=== PATIENT | female | born 1985 | race Caucasian/White ===

== ENCOUNTER 2022-06-19 11:36 | Emergency (ER) | payer OTHER ==
--- NOTE | 2022-06-19 11:47 | ED ---
Abdominal Pain HPI - General Chief Complaint: Abdominal Pain Stated Complaint: RLQ abd pain Time Seen by Provider: 06/19/22 11:46 Source: patient, RN notes reviewed Mode of arrival: ambulatory Limitations: no limitations - History of Present Illness Initial Comments: Patient is a 37-year-old female presents the emergency room with sudden onset of right lower quadrant pain that began last night with some associated diarrhea and nausea without vomiting. She denies any fevers, chills, pain, shortness of breath, blood or mucus in her stool. She denies any known exposure to cold or influenza. She has not taken any medication to treat her symptoms. She has a past medical history significant for endometriosis with uterine ablation a few years ago, rheumatoid arthritis not currently on any biologicals or immunosuppressive therapy, and kidney stones. She reports that the pain she is experiencing is not like her usual kidney stone pain she ty pically has classic flank pain with her kidney stones with cloudy or blood- tinged urine. She has not had a stone and several months. She denies any other complaints or concerns at this time. - Related Data Allergies Allergy/AdvReac Type Severity Reaction Status Date / Time Iodine and Iodide Containing Allergy Rash/Hives Verified 06/19/22 11:41 Produc Review of Systems ROS Statement: Those systems with pertinent positive or pertinent negative responses have been documented in the HPI. ROS Other: All systems not noted in ROS Statement are negative. Past Medical History Additional Past Medical History / Comment(s): RA, Kidney stones History of Any Multi-Drug Resistant Organisms: None Reported Past Surgical History: Ablation, Section, Cholecystectomy, Hernia Repair Past Psychological History: No Psychological Hx Reported Smoking Status: Never smoker Past Alcohol Use History: None Reported Past Drug Use History: Marijuana General Exam Limitations: no limitations Course Vital Signs 06/19/22 06/19/22 11:38 15:49 Temperature 97.8 F 98.4 F Pulse Rate 81 64 Respiratory 18 16 Rate Blood Pressure 133/80 121/91 O2 Sat by Pulse 99 97 Oximetry Medical Decision Making - Medical Decision Making Due to sudden onset of right lower extremity quadrant pain concern for renal stone and appendicitis; given the lack of flank pain and urinary symptoms higher for appendicitis. Will check computed tomography scan of the abdomen and pelvis. Will check CBC for infectious process along with cough, amylase and lipase to evaluate electrolyte abnormalities and GI lab disturbances. Will check urinalysis to rule out UTI and hematuria along with urine test. Computed tomography scan negative for appendicitis with normal-appearing appendix however inflammatory changes and or fluid collection noted in the right lower quadrant adnexal region differential diagnoses include ovarian cyst rupture; she has a history of ovarian cysts. Will check a transvaginal ultrasound of the pelvis. Will give Toradol for pain and monitor response. CBC overall normal. Comp reveals mildly elevated total bilirubin otherwise no anom alies. Urine negative for acute findings. test negative. Pelvic ultrasound shows multiple follicles on bilateral ovaries along with endometriosis and nathbalion cyst; no ovarian torsion or free fluid in the pelvis. She is already established with [facility] and would like to follow up outpatient with her [facility]. No significant pain improvement from dose of Toradol. 2 mg morphine to help control pain prior to disc discharge; patient has a ride home and does not need to drive. Will discharge home with strict return parameters. Case discussed with Dr. Nunes. - Lab Data Result diagrams: 06/19/22 12:19 06/19/22 12:19 Lab Results 06/19/22 06/19/22 06/19/22 Range/Units 12:19 12:19 12:19 WBC 9.8 (3.8-10.6) k/uL RBC 4.56 (3.80-5.40) m/uL Hgb 13.4 (11.4-16.0) gm/dL Hct 40.2 (34.0-46.0) % MCV 88.1 (80.0-100.0) fL MCH 29.5 (25.0-35.0) pg MCHC 33.4 (31.0-37.0) g/dL RDW 12.6 (11.5-15.5) % Plt Count 237 (150-450) k/uL MPV 7.2 Neutrophils % 68 % Lymphocytes % 23 % Monocytes % 5 % Eosinophils % 1 % Basophils % 0 % Neutrophils # 6.7 (1.3-7.7) k/uL Lymphocytes # 2.3 (1.0-4.8) k/uL Monocytes # 0.5 (0-1.0) k/uL Eosinophils # 0.1 (0-0.7) k/uL Basophils # 0.0 (0-0.2) k/uL Sodium 138 (137-145) mmol/L Potassium 4.2 (3.5-5.1) mmol/L Chloride 105 (98-107) mmol/L Carbon Dioxide 26 (22-30) mmol/L Anion Gap 7 mmol/L BUN 12 (7-17) mg/dL Creatinine 0.61 (0.52-1.04) mg/dL Est GFR (CKD-EPI)AfAm >90 (>60 ml/min/1.73 sqM) Est GFR (CKD-EPI)NonAf >90 (>60 ml/min/1.73 sqM) Glucose 87 (74-99) mg/dL Plasma Lactic Acid Leon 0.9 (0.7-2.0) mmol/L Calcium 9.5 (8.4-10.2) mg/dL Total Bilirubin 2.1 H (0.2-1.3) mg/dL AST 35 (14-36) U/L ALT 27 (4-34) U/L Alkaline Phosphatase 102 (38-126) U/L Total Protein 7.2 (6.3-8.2) g/dL Albumin 4.4 (3.5-5.0) g/dL Amylase 64 (30-110) U/L Lipase 100 (23-300) U/L HCG, Quant <2.4 mIU/mL Urine Color Urine Appearance (Clear) Urine pH (5.0-8.0) Ur Specific [place] (1.001-1.035) Urine Protein (Negative) Urine Glucose (UA) (Negative) Urine Ketones (Negative) Urine Blood (Negative) Urine Nitrite (Negative) Urine Bilirubin (Negative) Urine Urobilinogen (<2.0) mg/dL Ur Leukocyte Esterase (Negative) 06/19/22 Range/Units 12:19 WBC (3.8-10.6) k/uL RBC (3.80-5.40) m/uL Hgb (11.4-16.0) gm/dL Hct (34.0-46.0) % MCV (80.0-100.0) fL MCH (25.0-35.0) pg MCHC (31.0-37.0) g/dL RDW (11.5-15.5) % Plt Count (150-450) k/uL MPV Neutrophils % % Lymphocytes % % Monocytes % % Eosinophils % % Basophils % % Neutrophils # (1.3-7.7) k/uL Lymphocytes # (1.0-4.8) k/uL Monocytes # (0-1.0) k/uL Eosinophils # (0-0.7) k/uL Basophils # (0-0.2) k/uL Sodium (137-145) mmol/L Potassium (3.5-5.1) mmol/L Chloride (98-107) mmol/L Carbon Dioxide (22-30) mmol/L Anion Gap mmol/L BUN (7-17) mg/dL Creatinine (0.52-1.04) mg/dL Est GFR (CKD-EPI)AfAm (>60 ml/min/1.73 sqM) Est GFR (CKD-EPI)NonAf (>60 ml/min/1.73 sqM) Glucose (74-99) mg/dL Plasma Lactic Acid Leon (0.7-2.0) mmol/L Calcium (8.4-10.2) mg/dL Total Bilirubin (0.2-1.3) mg/dL AST (14-36) U/L ALT (4-34) U/L Alkaline Phosphatase (38-126) U/L Total Protein (6.3-8.2) g/dL Albumin (3.5-5.0) g/dL Amylase (30-110) U/L Lipase (23-300) U/L HCG, Quant mIU/mL Urine Color Colorless Urine Appearance Clear (Clear) Urine pH 7.0 (5.0-8.0) Ur Specific [place] 1.005 (1.001-1.035) Urine Protein Negative (Negative) Urine Glucose (UA) Negative (Negative) Urine Ketones Negative (Negative) Urine Blood Negative (Negative) Urine Nitrite Negative (Negative) Urine Bilirubin Negative (Negative) Urine Urobilinogen <2.0 (<2.0) mg/dL Ur Leukocyte Esterase Negative (Negative) Disposition Clinical Impression: Right lower quadrant abdominal pain Disposition: HOME SELF-CARE Condition: Stable Instructions (If sedation given, give patient instructions): Abdominal Pain (ED) Additional Instructions: Please utilize Tylenol or ibuprofen [id number] for pain as needed. If any changes in pain characteristics, associated symptoms chills nausea vomiting or diarrhea occur please return to the emergency room. Please follow-up with your primary care provider and [facility]. Please return to the Emergency Department if symptoms worsen or any other concerns. Is patient prescribed a controlled substance at d/c from ED?: No Referrals: Jeferson Ramírez MD [Primary Care Provider] - 1-2 days Time of Disposition: 16:26
[2022-06-19 12:30] LABS: Basophils % (A) 0 %; Eosinophils # (A) 0.1 k/uL (0-0.7); Eosinophils % (A) 1 %; HCT 40.2 % (34.0-46.0); HGB 13.4 gm/dL (11.4-16.0); Lymphocytes # (A) 2.3 k/uL (1.0-4.8); Lymphocytes % (A) 23 %; MCH 29.5 pg (25.0-35.0); MCHC 33.4 g/dL (31.0-37.0); MCV 88.1 fL (80.0-100.0); Mean Platelet Volume 7.2; Monocytes # (A) 0.5 k/uL (0-1.0); Monocytes % (A) 5 %; Neutrophils # (A) 6.7 k/uL (1.3-7.7); Neutrophils % (A) 68 %; Platelet Count 237 k/uL (150-450); RBC 4.56 m/uL (3.80-5.40); RDW 12.6 % (11.5-15.5); WBC 9.8 k/uL (3.8-10.6)
[2022-06-19 12:32] LABS: Appearance,Urine Clear (Clear); Bilirubin,Urine Negative (Negative); Blood,Urine Negative (Negative); Color,Urine Colorless; Glucose,Urine (UA) Negative (Negative); Ketones,Urine Negative (Negative); Leukocyte Esterase,Urine Negative (Negative); Nitrite,Urine Negative (Negative); Protein,Urine Negative (Negative); Specific Gravity,Urine 1.005 (1.001-1.035); Urobilinogen,Urine <2.0 mg/dL (<2.0)
[2022-06-19 12:41] LABS: ALT 27 U/L (4-34); AST 35 U/L (14-36); African American GFR (CKD) >90 (>60 ml/min/1.73 sqM); Albumin 4.4 g/dL (3.5-5.0); Alkaline Phosphatase 102 U/L (38-126); Amylase 64 U/L (30-110); Anion Gap 7 mmol/L; Blood Urea Nitrogen 12 mg/dL (7-17); Calcium 9.5 mg/dL (8.4-10.2); Carbon Dioxide 26 mmol/L (22-30); Chloride 105 mmol/L (98-107); Glucose 87 mg/dL (74-99); Lipase 100 U/L (23-300); Non-African American GFR(CKD) >90 (>60 ml/min/1.73 sqM); Sodium 138 mmol/L (137-145); Total Bilirubin 2.1 mg/dL (0.2-1.3); Total Protein 7.2 g/dL (6.3-8.2)
[2022-06-19 12:44] LABS: Potassium 4.2 mmol/L (3.5-5.1)
[2022-06-19 12:56] LABS: HCG,Quantitative Serum <2.4 mIU/mL
--- NOTE | 2022-06-19 13:30 | CT ---
EXAMINATION TYPE: CT abdomen pelvis wo con DATE OF EXAM: 06/19/2022 COMPARISON: None HISTORY: Abdominal pain CT DLP: 918 mGycm Automated exposure control for dose reduction was used. TECHNIQUE: Helical acquisition of images from the lung bases through the pelvis. FINDINGS: LUNG BASES: No significant abnormality is appreciated. AORTA: No significant abnormality is appreciataed. LIVER/GB: Patient is post cholecystectomy. Liver shows no mass.. PANCREAS: No significant abnormality is seen. SPLEEN: Upper limit of normal for size. ADRENALS: No significant abnormality is seen. KIDNEYS: No significant abnormality is seen. REPRODUCTIVE ORGANS: There is a small amount of soft tissue attenuation along the right psoas muscle , extension towards the right adnexal region, possible small amount of hemorrhage. URINARY BLADDER: No significant abnormality is seen. BOWEL: No significant abnormality is seen. The appendix is normal. FREE AIR: No Free Air is visible. ASCITES: None visible. PELVIC ADENOPATHY: None visualized. RETROPERITONEAL ADENOPATHY: No Retroperitoneal Adenopathy visible. OSSEOUS STRUCTURES: No significant abnormality is seen. IMPRESSION: THERE MAY BE A SMALL AMOUNT OF HEMORRHAGE OR INFLAMMATORY CHANGE DESCRIBED IN THE RIGHT LOWER QUAD RANT, POSSIBLY RELATED TO PATIENT'S PRIOR PROCEDURE
[2022-06-19] MEDS ORDERED: KETOROLAC 15 MG/ML 1 ML VIAL IVP STA (14:03)
[2022-06-19 15:55] VITALS: RESP 16; TEMP 98.4
--- NOTE | 2022-06-19 16:14 | US ---
EXAMINATION TYPE: US pelvis complete transvag DATE OF EXAM: 06/19/2022 COMPARISON: CT same date CLINICAL HISTORY: RLQ pain. RLQ pain TECHNIQUE: Transvaginal (TV) and Transabdominal (TA) . Transabdominal sonographic images of the pel vis were acquired. Transvaginal sonographic images were medically necessary to better assess the fol lowing anatomy: Uterus and ovaries Date of LMP: 06/08/2022 EXAM MEASUREMENTS: Uterus: 8.6 x 3.8 x 5.1 cm Endometrial Stripe: 0.6 cm Right Ovary: 2.9 x 2.0 x 2.6 cm Left Ovary: 2.6 x 1.7 x 2.6 cm Grayscale, color Doppler, spectral Doppler imaging performed, there is color flow, vascular waveforms in the right ovary and to the left ovary. 1. Uterus: Anteverted Appears heterogenous, round heterogenous area noted in left uterus area sona uring 2.2 x 2.2 x 1.8 cm, anechoic area noted in cervix measuring 0.9 x 0.5 x 0.6 cm consistent with nabothian cyst 2. Endometrium: 0.6cm TA, limited due to adjacent fibroid 3. Right Ovary: Follicles noted, largest measures 1.4 x 0.8 x 1.1 cm 4. Left Ovary: Follicles noted largest measures 1.1 x 0.7 x 1.0 cm 5. Bilateral Adnexa: Appears wnl, no abnormalities seen 6. Posterior cul-de-sac: Appears wnl, no free fluid seen IMPRESSION: Probable fibroid uterus. Pelvic MRI could be performed for additional evaluation.
[2022-06-19] MEDS ORDERED: MORPHINE SULFATE 2 MG/ML SYRINGE IM STA (16:23)
[2022-06-19 16:53] VITALS: BP 132/69; PULSE 78
== END 2022-06-19 16:53 | disposition home or self-care (01) ==
LOC: EC 11:36
DX: R10.31 Right lower quadrant pain (principal); Z91.041 Radiographic dye allergy status
CPT/HCPCS: 36415; 80053; 82150; 83605; 83690; 85025; 81003; 84702; 76856; 76830; 74176; 99284; 96374; 96372; J2270; J1885